=== PATIENT | female | born 1945 | race Caucasian/White ===

== ENCOUNTER 2017-06-30 19:13 | Inpatient (IN) | payer OTHER, MEDICARE ==
[~2017-06-30] VITALS: Ht 170.2 cm; Wt 52.0 kg
[2017-06-30 20:38] LABS: BASOPHIL (%) 0.1 % (0-1); EOSINOPHIL (%) 0 % (0-5); HEMATOCRIT 32.3 % (36.0-46.0); HEMOGLOBIN 11.2 G/DL (11.9-15.5); IMMATURE GRANULOCYTE (%) 0.9 % (0.0-0.7); LYMPHOCYTE (%) 6.2 % (15-42); LYMPHOCYTE COUNT 1.1 K/uL (1.0-2.8); MCH 29.2 PG (29.0-34.0); MCHC 34.7 G/DL (30.0-36.0); MCV 84.1 FL (83-99); MONOCYTE (%) 8.1 % (3-12); MONOCYTE COUNT 1.4 K/uL (0-0.8); NEUTROPHIL (%) 84.7 % (45-76); PLATELET COUNT 257 K/uL (156-360); RBC DIS.WIDTH-CV 15.7 % (11.8-14.6); RBC DIS.WIDTH-SD 47.8 % (39-53); RED BLOOD COUNT 3.84 M/uL (3.80-5.20); WHITE BLOOD COUNT 17.7 K/uL (4.1-10.2)
[2017-06-30 20:47] LABS: ALBUMIN 3.2 g/dL (3.2-4.8); CHLORIDE 97 mEq/L (99-109); SODIUM 137 mEq/L (136-147)
[2017-06-30 20:49] LABS: GLUCOSE 113 mg/dL (70-99); TOTAL PROTEIN 5.5 g/dL (6.4-8.3)
[2017-06-30 20:51] LABS: TOTAL BILIRUBIN 0.7 mg/dL (0.0-1.0)
[2017-06-30 20:53] LABS: ALKALINE PHOSPHATASE 30 IU/L (3-129); CREATININE 1.9 mg/dL (0.6-1.3); GFR ESTIMATE (CALCULATED) 28 mL/min/
[2017-06-30 20:54] LABS: UREA NITROGEN (BUN) 51 mg/dL (9-23)
[2017-06-30 20:55] LABS: AST (GOT) 30 IU/L (2-34)
[2017-06-30 20:56] LABS: ALT (GPT) 20 IU/L (3-49)
[2017-06-30 21:02] LABS: TROP-I INTERPRETATION NEGATIVE; TROPONIN-I 0.05 ng/mL (0.0-0.30)
[2017-06-30 21:18] LABS: POTASSIUM 2.4 mEq/L (3.7-5.4)
[2017-06-30 21:45] LABS: APPEARANCE CLOUDY ((CLEAR)); BILIRUBIN NEGATIVE; BLOOD SMALL; COLOR YELLOW ((YELLOW)); GLUCOSE (STRIP) NEGATIVE; KETONES NEGATIVE; LEUKOCYTES LARGE; NITRITE NEGATIVE; PROTEIN (STRIP) 100; SPECIFIC GRAVITY 1.009 (1.000-1.030); UROBILINOGEN 0.2 MG/DL (0.2-1.0)
[2017-06-30 22:00] LABS: RED BLOOD CELLS 0-5 /HPF (0-5)
[2017-06-30 22:01] LABS: BACTERIA 3+ /HPF; EPITHELIAL CELLS 2+ /HPF; MUCUS NONE SEEN /LPF; UCUL ADDED? YES
[2017-07-01 07:10] LABS: BASOPHIL (%) 0.1 % (0-1); EOSINOPHIL (%) 0 % (0-5); HEMATOCRIT 31.4 % (36.0-46.0); HEMOGLOBIN 10.7 G/DL (11.9-15.5); IMMATURE GRANULOCYTE (%) 0.9 % (0.0-0.7); LYMPHOCYTE (%) 6.2 % (15-42); MCH 29.1 PG (29.0-34.0); MCHC 34.1 G/DL (30.0-36.0); MCV 85.3 FL (83-99); MONOCYTE (%) 7.8 % (3-12); MONOCYTE COUNT 1.2 K/uL (0-0.8); PLATELET COUNT 214 K/uL (156-360); RBC DIS.WIDTH-CV 15.7 % (11.8-14.6); RBC DIS.WIDTH-SD 49.1 % (39-53); RED BLOOD COUNT 3.68 M/uL (3.80-5.20); WHITE BLOOD COUNT 15.3 K/uL (4.1-10.2)
[2017-07-01 07:51] LABS: CHLORIDE 98 MEQ/L (99-109); CREATININE 1.5 MG/DL (0.6-1.3); GFR ESTIMATE (CALCULATED) 36 mL/min/; GLUCOSE 111 mg/dL (70-99); HDL CHOLESTEROL 36 MG/DL (Desirable>=50); LDL CHOLESTEROL 43 mg/dL (Desirable<100); NON-HDL CHOLESTEROL 63 mg/dL (Desirable<160); SODIUM 139 MEQ/L (136-147); TOTAL CHOLESTEROL 99 mg/dL (Desirable<200); TRIGLYCERIDES 102 MG/DL (Normal: <150); UREA NITROGEN (BUN) 47 mg/dL (9-23)
[2017-07-01 07:52] LABS: POTASSIUM 2.4 MEQ/L (3.7-5.4)
[2017-07-01 08:38] LABS: HEMOGLOBIN A1c (GLYCOHEMOGLOB) 6.2 % (Below 5.7)
[2017-07-01 12:52] LABS: ALBUMIN 2.8 g/dL (3.2-4.8)
[2017-07-01 12:53] LABS: CHLORIDE 99 mEq/L (99-109); POTASSIUM 2.6 mEq/L (3.7-5.4); SODIUM 136 mEq/L (136-147)
[2017-07-01 12:55] LABS: GLUCOSE 114 mg/dL (70-99)
[2017-07-01 12:58] LABS: ALKALINE PHOSPHATASE 27 IU/L (3-129); TOTAL BILIRUBIN 0.5 mg/dL (0.0-1.0)
[2017-07-01 12:59] LABS: CREATININE 1.3 mg/dL (0.6-1.3); GFR ESTIMATE (CALCULATED) 43 mL/min/
[2017-07-01 13:00] LABS: AST (GOT) 31 IU/L (2-34); UREA NITROGEN (BUN) 44 mg/dL (9-23)
[2017-07-01 13:02] LABS: ALT (GPT) 22 IU/L (3-49)
[2017-07-01] MEDS ORDERED: AMIODARONE HCL200 MG PO (15:13)
[2017-07-01] MEDS ORDERED: METOPROLOL TART25 MG PO (15:14)
[2017-07-01] MEDS ORDERED: SARAFEM20 M1 PO (15:14)
[2017-07-01] MEDS ORDERED: PRAVACHOL40 MG PO (15:15)
[2017-07-01] MEDS ORDERED: PEPCID20 MG PO (15:15)
[2017-07-01] MEDS ORDERED: PRADAXA150 MG PO (15:15)
[2017-07-01] MEDS ORDERED: LOTENSIN40 MG PO (15:16)
[2017-07-01] MEDS ORDERED: ACTOS45 MG PO (15:16)
[2017-07-01] MEDS ORDERED: CATAPRES0.1 MG PO (15:17)
[2017-07-01] MEDS ORDERED: OXYBUTYNIN CHLOR5 MG PO (15:17)
[2017-07-01 15:29] VITALS: BP 134/60
[2017-07-01] MEDS ORDERED: METFORMIN HCL500 MG PO (15:59)
[2017-07-01 16:57] LABS: C DIFF TOXIN NEGATIVE (NEGATIVE)
[2017-07-01 17:34] VITALS: BP 132/63
[2017-07-01 20:23] VITALS: BP 106/55
[2017-07-01 20:23] LABS: CHLORIDE 96 MEQ/L (99-109); CREATININE 1.2 MG/DL (0.6-1.3); GFR ESTIMATE (CALCULATED) 47 mL/min/; GLUCOSE 116 mg/dL (70-99); POTASSIUM 2.5 MEQ/L (3.7-5.4); SODIUM 137 MEQ/L (136-147); UREA NITROGEN (BUN) 39 mg/dL (9-23)
[2017-07-01 23:44] VITALS: BP 107/56
[2017-07-02 03:24] VITALS: BP 114/66
[2017-07-02 05:38] LABS: BASOPHIL (%) 0.1 % (0-1); EOSINOPHIL (%) 0 % (0-5); HEMATOCRIT 30.5 % (36.0-46.0); HEMOGLOBIN 10.5 G/DL (11.9-15.5); IMMATURE GRANULOCYTE (%) 0.7 % (0.0-0.7); LYMPHOCYTE (%) 4.5 % (15-42); LYMPHOCYTE COUNT 0.8 K/uL (1.0-2.8); MCH 29.2 PG (29.0-34.0); MCHC 34.4 G/DL (30.0-36.0); MONOCYTE (%) 6.3 % (3-12); MONOCYTE COUNT 1.1 K/uL (0-0.8); NEUTROPHIL (%) 88.4 % (45-76); NEUTROPHIL COUNT 15.4 K/uL (1.8-6.4); PLATELET COUNT 195 K/uL (156-360); RBC DIS.WIDTH-CV 15.8 % (11.8-14.6); RBC DIS.WIDTH-SD 49.7 % (39-53); RED BLOOD COUNT 3.59 M/uL (3.80-5.20); WHITE BLOOD COUNT 17.4 K/uL (4.1-10.2)
[2017-07-02 06:10] LABS: CHLORIDE 97 MEQ/L (99-109); GFR ESTIMATE (CALCULATED) 58 mL/min/; GLUCOSE 111 mg/dL (70-99); PHOSPHORUS 1.4 mg/dL (2.5-4.9); SODIUM 140 MEQ/L (136-147); UREA NITROGEN (BUN) 33 mg/dL (9-23)
[2017-07-02 06:11] LABS: MAGNESIUM 0.9 mg/dl (1.3-2.7); POTASSIUM 2.3 MEQ/L (3.7-5.4)
[2017-07-02 08:00] VITALS: BP 159/76
[2017-07-02 11:55] VITALS: BP 115/53
[2017-07-02 13:19] LABS: CHLORIDE 97 MEQ/L (99-109); POTASSIUM 2.5 MEQ/L (3.7-5.4); SODIUM 138 MEQ/L (136-147)
[2017-07-02 13:24] LABS: CREATININE 0.9 MG/DL (0.6-1.3); GFR ESTIMATE (CALCULATED) > 59 mL/min/; GLUCOSE 129 mg/dL (70-99); UREA NITROGEN (BUN) 30 mg/dL (9-23)
[2017-07-02 16:00] VITALS: BP 129/60
[2017-07-02 20:25] VITALS: BP 122/58
[2017-07-02 22:10] LABS: CHLORIDE 97 MEQ/L (99-109); CREATININE 0.8 MG/DL (0.6-1.3); GFR ESTIMATE (CALCULATED) > 59 mL/min/; GLUCOSE 151 mg/dL (70-99); SODIUM 138 MEQ/L (136-147); UREA NITROGEN (BUN) 25 mg/dL (9-23)
[2017-07-02 22:11] LABS: POTASSIUM 3.1 MEQ/L (3.7-5.4)
[2017-07-02 23:43] VITALS: BP 133/63
[2017-07-03 03:40] VITALS: BP 120/62
[2017-07-03 06:13] LABS: BASOPHIL (%) 0.1 % (0-1); EOSINOPHIL (%) 0.1 % (0-5); HEMATOCRIT 30.5 % (36.0-46.0); HEMOGLOBIN 10.3 G/DL (11.9-15.5); IMMATURE GRANULOCYTE (%) 0.7 % (0.0-0.7); LYMPHOCYTE (%) 5.5 % (15-42); LYMPHOCYTE COUNT 0.8 K/uL (1.0-2.8); MCH 28.8 PG (29.0-34.0); MCHC 33.8 G/DL (30.0-36.0); MCV 85.2 FL (83-99); MONOCYTE (%) 5.9 % (3-12); MONOCYTE COUNT 0.9 K/uL (0-0.8); NEUTROPHIL (%) 87.7 % (45-76); NEUTROPHIL COUNT 13.5 K/uL (1.8-6.4); PLATELET COUNT 170 K/uL (156-360); RBC DIS.WIDTH-CV 15.9 % (11.8-14.6); RBC DIS.WIDTH-SD 49.9 % (39-53); RED BLOOD COUNT 3.58 M/uL (3.80-5.20); WHITE BLOOD COUNT 15.3 K/uL (4.1-10.2)
[2017-07-03 06:24] LABS: CHLORIDE 103 MEQ/L (99-109); CREATININE 0.8 MG/DL (0.6-1.3); GFR ESTIMATE (CALCULATED) > 59 mL/min/; GLUCOSE 132 mg/dL (70-99); POTASSIUM 3.7 MEQ/L (3.7-5.4); SODIUM 137 MEQ/L (136-147); UREA NITROGEN (BUN) 21 mg/dL (9-23)
[2017-07-03 06:25] LABS: MAGNESIUM 1.8 mg/dl (1.3-2.7)
[2017-07-03 07:41] VITALS: BP 151/68
[2017-07-03 11:32] VITALS: BP 135/64
[2017-07-03 16:15] VITALS: BP 137/65
[2017-07-03 19:46] VITALS: BP 119/57
[2017-07-03 23:52] VITALS: BP 127/62
[2017-07-04 03:43] VITALS: BP 142/65
[2017-07-04 08:00] VITALS: BP 153/67
[2017-07-04 12:30] LABS: BASOPHIL (%) 0.1 % (0-1); EOSINOPHIL (%) 0.8 % (0-5); EOSINOPHIL COUNT 0.1 K/uL (0-0.3); HEMATOCRIT 31.7 % (36.0-46.0); HEMOGLOBIN 10.4 G/DL (11.9-15.5); IMMATURE GRANULOCYTE (%) 0.4 % (0.0-0.7); LYMPHOCYTE (%) 6.9 % (15-42); LYMPHOCYTE COUNT 1.1 K/uL (1.0-2.8); MCH 28.6 PG (29.0-34.0); MCHC 32.8 G/DL (30.0-36.0); MCV 87.1 FL (83-99); MONOCYTE COUNT 0.9 K/uL (0-0.8); NEUTROPHIL (%) 85.8 % (45-76); NEUTROPHIL COUNT 13.4 K/uL (1.8-6.4); PLATELET COUNT 142 K/uL (156-360); RBC DIS.WIDTH-CV 16.6 % (11.8-14.6); RBC DIS.WIDTH-SD 53.2 % (39-53); RED BLOOD COUNT 3.64 M/uL (3.80-5.20); WHITE BLOOD COUNT 15.6 K/uL (4.1-10.2)
[2017-07-04 12:32] LABS: ALBUMIN 2.4 G/DL (3.2-4.8); ALKALINE PHOSPHATASE 29 IU/L (3-129); ALT (GPT) 13 IU/L (3-49); AST (GOT) 12 IU/L (2-34); CHLORIDE 102 MEQ/L (99-109); CREATININE 0.7 MG/DL (0.6-1.3); GFR ESTIMATE (CALCULATED) > 59 mL/min/; GLUCOSE 132 mg/dL (70-99); POTASSIUM 4.3 MEQ/L (3.7-5.4); SODIUM 135 MEQ/L (136-147); TOTAL BILIRUBIN 0.5 MG/DL (0.0-1.0); TOTAL PROTEIN 4.5 G/DL (6.4-8.3); UREA NITROGEN (BUN) 14 mg/dL (9-23)
[2017-07-04 12:34] LABS: MAGNESIUM 1.5 mg/dl (1.3-2.7); PHOSPHORUS 1.8 mg/dL (2.5-4.9)
[2017-07-04 16:00] VITALS: BP 166/74
[2017-07-04 16:41] LABS: APPEARANCE SL.HAZY ((CLEAR)); BILIRUBIN NEGATIVE; BLOOD SMALL; COLOR YELLOW ((YELLOW)); GLUCOSE (STRIP) 50; KETONES NEGATIVE; LEUKOCYTES NEGATIVE; NITRITE NEGATIVE; PROTEIN (STRIP) 100; SPECIFIC GRAVITY 1.011 (1.000-1.030); UROBILINOGEN 0.2 MG/DL (0.2-1.0)
[2017-07-04 16:56] LABS: BACTERIA NONE SEEN /HPF; EPITHELIAL CELLS RARE /HPF; HYALINE CASTS 0-5 /LPF; MUCUS TRACE /LPF; RED BLOOD CELLS 30-40 /HPF (0-5)
[2017-07-04 23:40] VITALS: BP 111/54
[2017-07-05 06:53] LABS: BASOPHIL (%) 0.1 % (0-1); EOSINOPHIL (%) 1.9 % (0-5); EOSINOPHIL COUNT 0.2 K/uL (0-0.3); HEMATOCRIT 29.9 % (36.0-46.0); HEMOGLOBIN 10.1 G/DL (11.9-15.5); IMMATURE GRANULOCYTE (%) 1.1 % (0.0-0.7); LYMPHOCYTE (%) 9.1 % (15-42); LYMPHOCYTE COUNT 1.2 K/uL (1.0-2.8); MCH 29.4 PG (29.0-34.0); MCHC 33.8 G/DL (30.0-36.0); MCV 86.9 FL (83-99); MONOCYTE (%) 6.6 % (3-12); MONOCYTE COUNT 0.8 K/uL (0-0.8); NEUTROPHIL (%) 81.2 % (45-76); NEUTROPHIL COUNT 10.4 K/uL (1.8-6.4); PLATELET COUNT 115 K/uL (156-360); RBC DIS.WIDTH-CV 16.7 % (11.8-14.6); RBC DIS.WIDTH-SD 52.3 % (39-53); RED BLOOD COUNT 3.44 M/uL (3.80-5.20); WHITE BLOOD COUNT 12.8 K/uL (4.1-10.2)
[2017-07-05 07:13] LABS: CHLORIDE 105 MEQ/L (99-109); CREATININE 0.7 MG/DL (0.6-1.3); GFR ESTIMATE (CALCULATED) > 59 mL/min/; GLUCOSE 101 mg/dL (70-99); PHOSPHORUS 2.3 mg/dL (2.5-4.9); POTASSIUM 3.9 MEQ/L (3.7-5.4); SODIUM 138 MEQ/L (136-147); UREA NITROGEN (BUN) 10 mg/dL (9-23)
[2017-07-05 07:59] VITALS: BP 164/71
[2017-07-05 15:38] VITALS: BP 148/63
[2017-07-06 00:01] VITALS: BP 134/59
[2017-07-06 07:27] VITALS: BP 178/72
[2017-07-06 15:35] VITALS: BP 148/69
[2017-07-06 23:29] VITALS: BP 122/56
[2017-07-07] VITALS (7 sets, daily range): BP systolic 108–183; BP diastolic 55–97
[2017-07-07 07:00] LABS: BASOPHIL (%) 0.1 % (0-1); EOSINOPHIL (%) 2.4 % (0-5); EOSINOPHIL COUNT 0.3 K/uL (0-0.3); HEMOGLOBIN 10.3 G/DL (11.9-15.5); IMMATURE GRANULOCYTE (%) 0.6 % (0.0-0.7); LYMPHOCYTE (%) 10.2 % (15-42); LYMPHOCYTE COUNT 1.2 K/uL (1.0-2.8); MCH 28.6 PG (29.0-34.0); MCHC 33.2 G/DL (30.0-36.0); MCV 86.1 FL (83-99); MONOCYTE (%) 9.3 % (3-12); MONOCYTE COUNT 1.1 K/uL (0-0.8); NEUTROPHIL (%) 77.4 % (45-76); NEUTROPHIL COUNT 8.8 K/uL (1.8-6.4); RBC DIS.WIDTH-CV 16.4 % (11.8-14.6); RBC DIS.WIDTH-SD 51.8 % (39-53); WHITE BLOOD COUNT 11.4 K/uL (4.1-10.2)
[2017-07-07 07:02] LABS: PLATELET COUNT 159 K/uL (156-360)
[2017-07-07 07:54] LABS: ALBUMIN 2.3 G/DL (3.2-4.8); ALKALINE PHOSPHATASE 33 IU/L (3-129); ALT (GPT) 8 IU/L (3-49); AMYLASE < 10 IU/L (1-118); AST (GOT) 9 IU/L (2-34); CHLORIDE 104 MEQ/L (99-109); CREATININE 0.7 MG/DL (0.6-1.3); GFR ESTIMATE (CALCULATED) > 59 mL/min/; GLUCOSE 105 mg/dL (70-99); LIPASE < 3.0 U/L (1.0-51.0); POTASSIUM 3.2 MEQ/L (3.7-5.4); SODIUM 137 MEQ/L (136-147); TOTAL BILIRUBIN 0.5 MG/DL (0.0-1.0); TOTAL PROTEIN 4.3 G/DL (6.4-8.3); UREA NITROGEN (BUN) 9 mg/dL (9-23)
[2017-07-08 04:04] VITALS: BP 126/66
[2017-07-08 07:05] LABS: CHLORIDE 103 MEQ/L (99-109); CREATININE 0.7 MG/DL (0.6-1.3); GFR ESTIMATE (CALCULATED) > 59 mL/min/; GLUCOSE 98 mg/dL (70-99); SODIUM 133 MEQ/L (136-147); UREA NITROGEN (BUN) 10 mg/dL (9-23)
[2017-07-08 07:09] LABS: POTASSIUM 3.9 MEQ/L (3.7-5.4)
[2017-07-08 08:20] VITALS: BP 132/61
[2017-07-08] MEDS ORDERED: PRADAXA75 MG PO (13:15)
[2017-07-08] MEDS ORDERED: AMLODIPINE BESYL5 MG PO (13:16)
[2017-07-08] MEDS ORDERED: CREON 241 CAPSULE PO (13:17)
[2017-07-08] MEDS ORDERED: FAMOTIDINE20 MG PO (13:18)
[2017-07-08] MEDS ORDERED: CEFTIN500 MG PO (13:20)
[2017-07-08] MEDS ORDERED: Zeasorb Antifungal T TP (13:47)
== END 2017-07-08 15:34 | disposition home health service (06) | DRG 872 ==
LOC: EME 19:13 → 4SOUTH 22:20 → EDOF 22:20 → ENRESERV 22:36 → 4SOUTH 07-01 15:00 → ENRESERV 07-03 13:23 → 2EAST 07-03 16:08 → ENPENDDIS 07-08 → 2EAST 07-08 15:34
PROVIDERS: Emergency Medicine Emergency Medical Services; Family Medicine; Internal Medicine Nephrology
DX: A41.9 Sepsis, unspecified organism (principal); N17.9 Acute kidney failure, unspecified; I69.354 Hemiplegia and hemiparesis following cerebral infarction affecting left non-dominant side; M06.9 Rheumatoid arthritis, unspecified; N13.6 Pyonephrosis; E86.0 Dehydration; E87.6 Hypokalemia; I10 Essential (primary) hypertension; E11.9 Type 2 diabetes mellitus without complications; E87.3 Alkalosis; E78.5 Hyperlipidemia, unspecified; Z86.718 Personal history of other venous thrombosis and embolism; D64.9 Anemia, unspecified; Z99.3 Dependence on wheelchair; Z91.14 Patient's other noncompliance with medication regimen; I48.91 Unspecified atrial fibrillation; N28.1 Cyst of kidney, acquired; I35.0 Nonrheumatic aortic (valve) stenosis; E83.42 Hypomagnesemia; K86.89 Other specified diseases of pancreas; R33.9 Retention of urine, unspecified; K80.20 Calculus of gallbladder without cholecystitis without obstruction
CPT/HCPCS: 74176; 76770; 80048; 80048 91; 80053; 80061; 80170; 81003; 82150; 82948; 83036; 83690; 83735; 83880; 84100; 84132 91; 84300; 84484; 85025; 87077; 87086 GA; 87493; 90686; 93005; 99281; 99285; J0696; J0780; J1580; J1815; J2405; J2543; J3475; J3480; J7030; J7040; J7050; J7120

== ENCOUNTER 2017-09-04 20:59 | Inpatient (IN) | payer OTHER, MEDICARE ==
[~2017-09-04] VITALS: Ht 167.6 cm; Wt 98.9 kg
[~2017-09-04 20:59] MED LIST: ACTOS45 MG PO; AMIODARONE HCL200 MG PO; AMLODIPINE BESYL5 MG PO; CATAPRES0.1 MG PO; CEFTIN500 MG PO; CREON 241 CAPSULE PO; FAMOTIDINE20 MG PO; LOTENSIN40 MG PO; METFORMIN HCL500 MG PO; METOPROLOL TART25 MG PO; OXYBUTYNIN CHLOR5 MG PO; PEPCID20 MG PO; PRADAXA150 MG PO; PRADAXA75 MG PO; PRAVACHOL40 MG PO; SARAFEM20 M1 PO; Zeasorb Antifungal T TP
[2017-09-04] MEDS ORDERED: KAOPECTATE 88 M88 M1 PO (21:40)
[2017-09-04] MEDS ORDERED: ZEASORB-AF70 G1 TP (21:41)
[2017-09-04] MEDS ORDERED: MIRALAX17 GM PO (21:42)
[2017-09-04] MEDS ORDERED: TYLENOL EXTRA500 MG PO (21:42)
[2017-09-04 22:25] LABS: BASOPHIL (%) 0.3 % (0-1); EOSINOPHIL (%) 2.6 % (0-5); EOSINOPHIL COUNT 0.2 K/uL (0-0.3); HEMATOCRIT 26.6 % (36.0-46.0); HEMOGLOBIN 8.7 G/DL (11.9-15.5); IMMATURE GRANULOCYTE (%) 0.5 % (0.0-0.7); LYMPHOCYTE (%) 16.1 % (15-42); LYMPHOCYTE COUNT 1.4 K/uL (1.0-2.8); MCH 31.9 PG (29.0-34.0); MCHC 32.7 G/DL (30.0-36.0); MCV 97.4 FL (83-99); MONOCYTE COUNT 0.7 K/uL (0-0.8); NEUTROPHIL (%) 72.5 % (45-76); NEUTROPHIL COUNT 6.4 K/uL (1.8-6.4); PLATELET COUNT 338 K/uL (156-360); RBC DIS.WIDTH-CV 15.9 % (11.8-14.6); RBC DIS.WIDTH-SD 56.6 % (39-53); RED BLOOD COUNT 2.73 M/uL (3.80-5.20); WHITE BLOOD COUNT 8.8 K/uL (4.1-10.2)
[2017-09-04 22:42] LABS: ALBUMIN 1.9 g/dL (3.2-4.8)
[2017-09-04 22:43] LABS: CHLORIDE 109 mEq/L (99-109); SODIUM 140 mEq/L (136-147)
[2017-09-04 22:45] LABS: GLUCOSE 171 mg/dL (70-99); TOTAL PROTEIN 4.7 g/dL (6.4-8.3)
[2017-09-04 22:47] LABS: TOTAL BILIRUBIN 0.3 mg/dL (0.0-1.0)
[2017-09-04 22:48] LABS: ALKALINE PHOSPHATASE 63 IU/L (3-129)
[2017-09-04 22:49] LABS: CREATININE 0.6 mg/dL (0.6-1.3); GFR ESTIMATE (CALCULATED) > 59 mL/min/
[2017-09-04 22:50] LABS: AST (GOT) 10 IU/L (2-34); UREA NITROGEN (BUN) 15 mg/dL (9-23)
[2017-09-04 22:52] LABS: ALT (GPT) 7 IU/L (3-49)
[2017-09-04 23:19] LABS: APPEARANCE CLOUDY ((CLEAR)); BILIRUBIN NEGATIVE; BLOOD MODERATE; COLOR YELLOW ((YELLOW)); GLUCOSE (STRIP) NEGATIVE; KETONES NEGATIVE; LEUKOCYTES LARGE; NITRITE NEGATIVE; PROTEIN (STRIP) 30; SPECIFIC GRAVITY 1.013 (1.000-1.030)
[2017-09-05 00:10] LABS: BACTERIA 2+ /HPF; EPITHELIAL CELLS RARE /HPF; MUCUS NONE SEEN /LPF; RED BLOOD CELLS 0-5 /HPF (0-5); TRIPLE PHOSPHATE CRYSTALS 1+ /HPF; UCUL ADDED? YES; WHITE BLOOD CELLS 30-40 /HPF (0-5)
[2017-09-05 04:14] VITALS: BP 130/59
[2017-09-05 06:55] VITALS: BP 134/60
[2017-09-05 11:00] VITALS: BP 115/56
[2017-09-05 15:00] VITALS: BP 120/63
[2017-09-05 18:53] VITALS: BP 109/53
[2017-09-05 22:51] VITALS: BP 128/57
[2017-09-06 03:21] VITALS: BP 118/58
[2017-09-06 06:59] VITALS: BP 128/58
[2017-09-06] MEDS ORDERED: CALMOSEPTINE O120 GM TP (10:42)
[2017-09-06] MEDS ORDERED: ZOFRAN4 MG PO (10:48)
[2017-09-06 11:23] VITALS: BP 122/56
[2017-09-06 15:24] VITALS: BP 111/54
[2017-09-06 19:22] VITALS: BP 121/56
[2017-09-06 22:42] VITALS: BP 107/56
[2017-09-07 04:13] VITALS: BP 102/66
[2017-09-07 09:48] VITALS: BP 105/63
[2017-09-07 11:15] VITALS: BP 137/61
[2017-09-07 15:48] VITALS: BP 124/59
[2017-09-07 19:25] VITALS: BP 132/63
[2017-09-07 23:18] VITALS: BP 119/58
[2017-09-08 04:10] VITALS: BP 113/55
[2017-09-08 07:19] VITALS: BP 128/62
[2017-09-08 08:46] LABS: INTER. NORMALIZED RATIO 1.3
[2017-09-08 08:49] LABS: PTT 55.6 SEC (25-37)
[2017-09-08 10:59] LABS: TYPE OF FLUID PLEURAL
[2017-09-08 11:18] LABS: APPEARANCE SL. HAZY-YELLOW; BODY FLUID RBC'S < 1000 /MM^3 (0-100); BODY FLUID WBC'S 388 /MM^3 (0-500)
[2017-09-08 11:48] VITALS: BP 122/67
[2017-09-08 11:54] LABS: BODY FLUID EOSINOPHILS 35 % (0-25); MONONUCLEAR WBC'S 65 %; POLYNUCLEAR WBC'S 0 % (0-25)
[2017-09-08 12:17] LABS: BODY FLUID GLUCOSE 103 MG/DL; BODY FLUID LDH 49 IU/L; BODY FLUID PROTEIN < 3.0 G/DL
[2017-09-08] MEDS ORDERED: CEFTIN500 MG PO (12:45)
== END 2017-09-08 16:51 | DRG 194 ==
LOC: EME 20:59 → 5EAST 09-05 01:45 → EDOF 09-05 01:45 → ENRESERV 09-05 02:03 → 5EAST 09-05 03:42
PROVIDERS: Emergency Medicine; Family Medicine; Radiology Diagnostic Radiology
PROC: 0W9B3ZX Drainage of Left Pleural Cavity, Percutaneous Approach, Diagnostic (ICD-10-PCS; principal; 2017-09-08)
DX: J18.9 Pneumonia, unspecified organism (principal); N39.0 Urinary tract infection, site not specified; J90 Pleural effusion, not elsewhere classified; I69.359 Hemiplegia and hemiparesis following cerebral infarction affecting unspecified side; E11.65 Type 2 diabetes mellitus with hyperglycemia; D64.9 Anemia, unspecified; I10 Essential (primary) hypertension; K86.89 Other specified diseases of pancreas; E66.9 Obesity, unspecified; K59.00 Constipation, unspecified; Z74.01 Bed confinement status; Z99.3 Dependence on wheelchair; Z91.19 Patient's noncompliance with other medical treatment and regimen; Z68.35 Body mass index [BMI] 35.0-35.9, adult; Z79.01 Long term (current) use of anticoagulants; Z79.84 Long term (current) use of oral hypoglycemic drugs; Z83.3 Family history of diabetes mellitus; Z80.0 Family history of malignant neoplasm of digestive organs; Z80.3 Family history of malignant neoplasm of breast; Z83.6 Family history of other diseases of the respiratory system
CPT/HCPCS: 71045; 71250; 74176; 76942; 80053; 81003; 82945; 82948; 83615 91; 83880; 84157; 85025; 85610; 85730; 87040; 87070; 87077; 87086; 87186; 87205; 88108; 88305; 89051; 93005; 93971; 99281; 99285; C1755; J0456; J0696; J1756; J1815; J1940; J7040; J7050